=== PATIENT | female | born 1995 | race Caucasian/White ===

== ENCOUNTER 2023-01-18 19:07 | Inpatient (IN) | payer BC, MEDICAID ==
[~2023-01-18 19:07] MED LIST: Bupivacaine 0.25% 10 ML SDV ONE
[2023-01-18] MEDS ORDERED: Nalbuphine HCl 10 MG/ 1ML Amp IVPUSH PRN (19:09)
[2023-01-18] MEDS ORDERED: Sodium Chloride 0.9% 10 ML Syringe FLUSH PRN (19:09)
[2023-01-18] MEDS ORDERED: Lidocaine 1% 50 ML MDV INJECT PRN (19:09)
[2023-01-18] MEDS ORDERED: Ondansetron 4 MG/2 ML SDV IVPUSH PRN (19:09)
[2023-01-18] MEDS ORDERED: Oxytocin/Lactated Ringers 30 UNIT/500 ML BAG IV SCH (19:15)
[2023-01-18 19:31] LABS: BASOPHILS PERCENT AUTO 0.2 % (0.0-1.0); EOSINOPHILS ABSOLUTE AUTO 0.1 K/mm3 (0.0-0.4); EOSINOPHILS PERCENT AUTO 0.6 % (0.0-6.0); HEMATOCRIT 39.6 % (37.0-47.0); HEMOGLOBIN 13.7 gm/dl (12.0-16.0); IMMATURE GRAN ABSOLUTE AUTO 0.05 K/mm3 (0.00-0.05); IMMATURE GRAN PERCENT AUTO 0.4 % (0.0-0.4); LYMPHOCYTES ABSOLUTE AUTO 3.3 K/mm3 (1.0-4.8); LYMPHOCYTES PERCENT AUTO 27.1 % (24.0-44.0); MEAN CORPUSCULAR HEMOGLOBIN 29.4 pg (28.0-32.0); MEAN CORPUSCULAR HGB CONC 34.6 g/dl (32.0-36.0); MONOCYTES ABSOLUTE AUTO 0.7 K/mm3 (0.0-0.8); MONOCYTES PERCENT AUTO 5.8 % (0.0-8.0); NEUTROPHILS ABSOLUTE AUTO 8.1 K/mm3 (1.8-7.7); NEUTROPHILS PERCENT AUTO 65.9 % (41.0-71.0); PLATELET COUNT,PLT 231 K/mm3 (150-400); RED BLOOD CELL COUNT 4.66 M/mm3 (4.10-5.30); WHITE BLOOD CELL COUNT,WBC 12.24 K/mm3 (3.9-11.3)
[2023-01-18 19:58] LABS: CREATININE 0.8 mg/dL (0.55-1.02); EST CRCL DRUG DOSING (CG) 90.41 mL/min
[2023-01-18] MEDS: Misoprostol 25 MCG (1/4 of 100 MCG) Tab VAG PRN (20:08)
[2023-01-18] MEDS ORDERED: diphenhydrAMINE 50 MG/ML SDV IVPUSH PRN (21:04)
[2023-01-18] MEDS ORDERED: ePHEDrine 50 MG/ML SDV IVPUSH PRN (21:04)
[2023-01-18] MEDS ORDERED: fentaNYL 100 MCG/2 ML SDV EPIDUR PRN (21:04)
[2023-01-18 21:43] LABS: CREATININE,URINE RAND 223.5 mg/dL (30.0-125.0); PROTEIN CREATININE RATIO,URINE 99.8 mg/g (0-149); PROTEIN,URINE RANDOM 22.3 mg/dL (0.0-11.8)
[2023-01-19] MEDS: Misoprostol 25 MCG (1/4 of 100 MCG) Tab VAG PRN ×2 (00:13→04:06)
[2023-01-19] MEDS ORDERED: Penicillin G Potassium 5 MILLUNITS in Sodium Chloride 0.9% 100 ML IV SCH ×2 (02:00→08:00)
[2023-01-19] MEDS ORDERED: Penicillin G Potassium 2.5 MILLUNITS in Sodium Chloride 0.9% 100 ML IV SCH (06:00)
[2023-01-19] MEDS ORDERED: Oxytocin/Lactated Ringers 30 UNIT/500 ML BAG IV SCH (07:00)
[2023-01-19] MEDS: Sodium Chloride 0.9% 10 ML Syringe FLUSH SCH ×2 (07:59→08:04)
[2023-01-19] MEDS: Lactated Ringers 1,000 ML IV SCH ×4 (08:30→12:23)
[2023-01-19] MEDS ORDERED: Acetaminophen 325 MG Tab PO PRN (08:38)
[2023-01-19] MEDS ORDERED: Calcium Carbonate 500 MG Tab.Chew PO PRN (08:38)
[2023-01-19] MEDS: Bupivacaine/fentaNYL/NS 100 ML Bag EPIDUR PRN ×2 (10:45→20:12)
[2023-01-19] MEDS: Penicillin G Potassium 2.5 MILLUNITS in Sodium Chloride 0.9% 100 ML IV SCH ×3 (12:19→20:12)
[2023-01-19] MEDS ORDERED: Azithromycin 500 MG in Sodium Chloride 0.9% 250 ML IV ONE (20:38)
[2023-01-19] MEDS ORDERED: Metoclopramide 10 MG/2 ML SDV IVPUSH ONE (20:38)
[2023-01-19] MEDS ORDERED: Citric Acid/Sodium Citrate Solution 30 ML Cup PO ONE (20:38)
[2023-01-19] MEDS ORDERED: ceFAZolin 2 GM in Sodium Chloride 0.9% 50 ML IV ONE (20:38)
[2023-01-19] MEDS ORDERED: Lactated Ringers 2,000 ML ONE (22:04)
[2023-01-19] MEDS ORDERED: Oxytocin 10 Units/1 ML SDV ONE (22:04)
[2023-01-19] MEDS ORDERED: Ondansetron 4 MG/2 ML SDV ONE (22:04)
[2023-01-19] MEDS ORDERED: Ketorolac 30 MG/ML SDV ONE (22:04)
[2023-01-19] MEDS ORDERED: Morphine PF 10 MG/10 ML SDV ONE (22:04)
[2023-01-19] MEDS ORDERED: fentaNYL 100 MCG/2 ML SDV ONE (22:07)
[2023-01-19] MEDS ORDERED: ceFAZolin 2 GM Vial ONE (22:09)
[2023-01-19] MEDS ORDERED: Lidocaine 2% with EPINEPHrine 1:200,000 20 ML SDV ONE (22:10)
[2023-01-19] MEDS ORDERED: Sodium Bicarbonate 8.4% 50 MEQ/50 ML SDV ONE (22:10)
[2023-01-19] MEDS ORDERED: Ondansetron 4 MG/2 ML SDV IVPUSH PRN (23:08)
[2023-01-19] MEDS ORDERED: fentaNYL 100 MCG/2 ML SDV IVPUSH PRN (23:08)
[2023-01-19] MEDS ORDERED: Meperidine 50 MG/ML Vial IVPUSH PRN (23:08)
[2023-01-19] MEDS ORDERED: diphenhydrAMINE 50 MG/ML SDV IVPUSH PRN (23:08)
[2023-01-20] MEDS ORDERED: Ondansetron 4 MG/2 ML SDV IV PRN (00:45)
[2023-01-20] MEDS ORDERED: Docusate Sodium 100 MG Cap PO PRN (00:45)
[2023-01-20] MEDS ORDERED: Acetaminophen/oxyCODONE 325-5 MG Tab PO PRN (00:45)
[2023-01-20] MEDS ORDERED: diphenhydrAMINE 50 MG/ML SDV IVPUSH PRN (00:45)
[2023-01-20] MEDS ORDERED: Dextrose 5%-Lactated Ringers 1,000 ML IV SCH (00:45)
[2023-01-20] MEDS ORDERED: ePHEDrine 50 MG/ML SDV IVPUSH PRN (00:45)
[2023-01-20] MEDS: Ketorolac 30 MG/ML SDV IVPUSH SCH ×3 (06:00→18:13)
[2023-01-20] MEDS: Sodium Chloride 0.9% 10 ML Syringe FLUSH SCH (12:07)
[2023-01-20] MEDS: Penicillin G Potassium 2.5 MILLUNITS in Sodium Chloride 0.9% 100 ML IV SCH (12:07)
[2023-01-20 12:13] LABS: HEMATOCRIT 31.2 % (37.0-47.0); MEAN CORPUSCULAR HEMOGLOBIN 29.5 pg (28.0-32.0); MEAN CORPUSCULAR VOLUME 86.9 fl (83.0-99.0); MEAN PLATELET VOLUME 10.7 fl (9.4-12.3); PLATELET COUNT,PLT 205 K/mm3 (150-400); RED BLOOD CELL COUNT 3.59 M/mm3 (4.10-5.30); WHITE BLOOD CELL COUNT,WBC 14.29 K/mm3 (3.9-11.3)
[2023-01-20 12:33] LABS: HEMOGLOBIN 10.6 gm/dl (12.0-16.0)
[2023-01-21] MEDS: Acetaminophen/oxyCODONE 325-5 MG Tab PO PRN ×4 (04:33→21:21)
[2023-01-21] MEDS: Ibuprofen 600 MG Tab PO PRN ×3 (04:34→21:23)
[2023-01-21] MEDS: Docusate Sodium 100 MG Cap PO SCH ×2 (12:33→21:00)
[2023-01-22] MEDS: Acetaminophen/oxyCODONE 325-5 MG Tab PO PRN (02:34)
[2023-01-22] MEDS: Ibuprofen 600 MG Tab PO PRN ×2 (03:23→10:42)
[2023-01-22] MEDS: Docusate Sodium 100 MG Cap PO SCH (10:42)
== END 2023-01-22 14:00 | disposition home or self-care (01) | DRG 540 ==
LOC: OBSVTOIN 19:07 → JD.OB 19:07
PROVIDERS: ADMIT Obstetrics & Gynecology; ATTEND Obstetrics & Gynecology
PROC: 10H07YZ Insertion of Other Device into Products of Conception, Via Natural or Artificial Opening (ICD-10-PCS; 2023-01-19)
PROC: 3E033VJ Introduction of Other Hormone into Peripheral Vein, Percutaneous Approach (ICD-10-PCS; 2023-01-19)
PROC: 10D00Z1 Extraction of Products of Conception, Low, Open Approach (ICD-10-PCS; principal; 2023-01-19 22:14)
DX: O76 Abnormality in fetal heart rate and rhythm complicating labor and delivery (principal); Z37.0 Single live birth; Z3A.40 40 weeks gestation of pregnancy; O99.824 Streptococcus B carrier state complicating childbirth; O62.1 Secondary uterine inertia
CPT/HCPCS: 36415; 51702; 59025; 82565; 82570; 84156; 84450; 84460; 85025; 85027; 86592; 86850; 86900; 86901; 94762; A9270-GY; J0456; J0690; J1200; J1885; J2274; J2405; J2540; J2590; J2765; J3010; J3490; J7050; J7120; J7121; J7999